=== PATIENT | male | born 1975 ===

== ENCOUNTER 2021-03-19 05:21 | Day surgery (SDC) | payer OTHER ==
[~2021-03-19 05:21] MED LIST: Dextrose 5%-0.45% NaCl 1,000 ML IV SCH; Midazolam 1 MG/ML 2 ML SDV ONE; Sodium Chloride 0.9% 10 ML Syringe FLUSH PRN; fentaNYL 100 MCG/2 ML SDV ONE
[2021-03-19] MEDS ORDERED: fentaNYL 100 MCG/2 ML SDV IV ONE ×4 (05:22→06:46)
[2021-03-19] MEDS ORDERED: Midazolam 1 MG/ML 2 ML SDV IV ONE ×7 (05:22→06:44)
[2021-03-19] MEDS ORDERED: Dextrose 5%-0.45% NaCl 1,000 ML IV SCH (05:30)
[2021-03-19 08:03] LABS: ANION GAP 9.5 mEq/L (7-13); CHLORIDE,CL 106 mmol/L (98-107); SODIUM,NA 140 mmol/L (136-145)
--- NOTE | 2021-03-19 08:54 | OR ---
DATE: 03/19/2021 PROCEDURE: Total colonoscopy. INSTRUMENT USED: PCF-H190DL Olympus videocolonoscope. PREMEDICATIONS: Fentanyl 125 mcg intravenous, Versed 4 mg intravenous, and nasal O2 cannula. The procedure was done under pulse oximetry, BP recording, and front window cashier. INDICATION: The patient with rectal bleeding. Colonoscopic examination is done for detection of any polypoid lesions and removal and endoscopic hemostasis therapy if needed. DESCRIPTION OF PROCEDURE: Initial rectal exam showed some anal sphincter spasm. Rigid anoscopy showed moderate-sized internal hemorrhoids without bleeding from them. The colonoscope was passed with ease up to the ileocecal area. The colon was found to be tortuous and redundant. Photographs were taken of the normal- appearing cecum identified by the appendiceal orifice and double-bulged ileocecal folds. No bleeding was noted from any of the visualized areas at the commencement of the examination. The bowel preparation was found to be adequate, [place] scale 3 in the transverse and left colon and 2 in the right colon, total score 8. No stricture, no vascular ectasia, and no large isolated ulcerations were seen. No evidence of diffuse inflammatory bowel disease in the form of friability, contact bleeding, or ulcerations. No polyp or tumor mass was identified. Probing the proximal sides of folds and flexures using adequate distention and clearing up the stool material, withdrawal of the scope was made, cecum to rectum time over 6 minutes. No bleeding was noted from any of the visualized areas at the completion of the examination. IMPRESSION: Internal hemorrhoids. The patient tolerated the procedure well. [facility] /[id number]
--- NOTE | 2021-03-19 09:52 | LETTER ---
03/19/2021 RE: TIESHA BRANDON : 1975 Hailey Amaral MD [facility], [place] [address] Amaral: Mr. Tiesha Brandon had a colonoscopic examination done this morning, and he tolerated the procedure well. I herewith send a copy of the endoscopy note and photographs for your review. Thank you. Sincerely, [facility] /[id number]
== END 2021-03-19 09:00 | disposition home or self-care (01) ==
LOC: DL.ENDO 05:21
PROVIDERS: ATTEND Internal Medicine Gastroenterology
DX: K62.5 Hemorrhage of anus and rectum (principal); K64.8 Other hemorrhoids; K59.4 Anal spasm; E66.01 Morbid (severe) obesity due to excess calories; Z98.890 Other specified postprocedural states; Z68.28 Body mass index [BMI] 28.0-28.9, adult
CPT/HCPCS: 36415; 45378; 80048; J2250; J3010; J7042